=== PATIENT | female | born 1985 | race Asian ===

== ENCOUNTER 2022-06-02 07:21 | Outpatient (REF) | payer BC, SELFPAY ==
[2022-06-02 07:29] LABS: MANUAL DIFF FLAG NO
[2022-06-02 08:02] LABS: Appearance Urine Clear; Color Urine Yellow; Glucose Urine UA Negative (Negative); Leukocyte Esterase Urine Negative (Negative); Nitrite Urine Negative (Negative); Specific Gravity - Urine <= 1.005 (1.005-1.025); Urine Blood Negative (Negative); Urine Ketones Negative (Negative); Urine Protein Negative (Neg-Trace)
[2022-06-02 08:27] LABS: Basophils Percent Auto 0.8 % (0-2); Eosinophils Absolute Auto 0.1 X10*3/uL (0.0-0.4); Eosinophils Percent Auto 1.7 % (0-4); Hematocrit 40.9 % (37.0-47.0); Hemoglobin 13.7 g/dl (12.0-16.0); Imm Gran Abs Auto 0.01 X10*3/uL (0.00-0.03); Imm Gran Pct Auto 0.3 % (0.0-0.4); Lymphocytes Absolute Auto 1.4 X10*3/uL (1.2-4.9); Lymphocytes Percent Auto 37.8 % (20-40); Mean Corpuscular HGB Conc 33.5 g/dl (31.0-35.0); Mean Corpuscular Hemoglobin 31.4 pg (27.0-33.0); Mean Corpuscular Volume 93.8 fL (80.0-98.0); Mean Platelet Volume 9.5 fL (9.4-12.3); Monocytes Absolute Auto 0.4 X10*3/uL (0.1-1.2); Neutrophils Absolute Auto 1.8 x10*3/uL (2.0-8.3); Neutrophils Percent Auto 48.4 % (45-73); Platelet Count 262 X10*3/uL (160-400); Red Blood Count 4.36 X10*6/uL (4.20-5.50); Red Cell Distribution Width 11.9 % (11.0-16.0); White Blood Count 3.6 X10*3/uL (4.8-10.8)
[2022-06-02 08:30] LABS: Creatinine Urine 34.66 mg/dL; Microalbumin Urine < 5.0 mg/L
[2022-06-02 08:51] LABS: Alanine Aminotransferase 16 U/L (0-31); Albumin Level 4.3 g/dL (3.5-5.0); Alkaline Phosphatase 60 U/L (39-117); Anion Gap 12 (12-20); Aspartate Amino Transferase 20 U/L (5-31); Bilirubin Total 0.7 mg/dL (0.0-1.0); Blood Urea Nitrogen 13 mg/dL (9-16); Calcium 9.6 mg/dL (8.4-10.2); Carbon Dioxide 24 mmol/L (22-29); Chloride 106 mmol/L (96-108); Cholesterol 216 mg/dL; Estimated Glomerular Filt Rate > 60; Glucose Fasting 83 mg/dL (60-99); HDL Cholesterol 93 mg/dL; LDL Cholesterol Calculated 112 mg/dl; Potassium 4.4 mmol/L (3.3-5.1); Sodium 138 mmol/L (135-145); Total Protein 6.6 g/dL (6.5-8.0); Triglycerides 55 mg/dL
[2022-06-02 09:08] LABS: TSH reflex Free T4 2.32 uIU/mL (0.32-4.0)
== END 2022-06-02 07:22 | disposition home or self-care (01) ==
LOC: HO.LAB 07:21
PROVIDERS: PCP Family Medicine; Visit Provider Family Medicine
DX: Z00.00 Encounter for general adult medical examination without abnormal findings (principal); I10 Essential (primary) hypertension
CPT/HCPCS: 36415; 80053; 80061; 81003; 82043; 84443; 85025

== ENCOUNTER 2022-08-12 08:56 | Outpatient (REF) | payer BC, SELFPAY ==
[2022-08-15 06:04] LABS: HPV mRNA E6/E7 rflx Not Detected (Not Detected)
== END 2022-08-12 08:57 | disposition home or self-care (01) ==
LOC: HO.LNP 08:56
PROVIDERS: PCP Family Medicine; Visit Provider Advanced Practice Midwife
DX: Z01.419 Encounter for gynecological examination (general) (routine) without abnormal findings (principal); Z11.51 Encounter for screening for human papillomavirus (HPV)
CPT/HCPCS: 87624; 88142

== ENCOUNTER 2023-01-15 15:13 | Outpatient (AMB) | payer BC, SELFPAY ==
--- NOTE | 2023-01-15 15:22 | MHC.PC.OV ---
Vital Signs 01/15/23 15:23 Height 5 ft 1 in Weight 102 lb 2 oz BMI 19.3 BP 112/74 Blood Pressure Location Rt brachial Position Sitting Respiration 12 Pulse 54 Pulse Source Pulse Oximeter Temp 98.3 F Temp Source Temporal Artery Scan Pulse Oximetry (%) 99 Oxygen Delivery Method Room Air Intake Visit Reasons: Ichy/Red/Rough Spot on Neck Intake Note: Patient states that the spot has been there for about 6 months. Patient states that she thought it would go away but it has gotten bigger since then. Patient states that she has scratched the spot raw and has tried to use creams to get rid of the itch but it hasnt worked. Patient states that she had the same itch behind her knee as well but that itch went away on its own. Win[employer] C[employer] Hand Required: No Accompanied by: Self / Same As Patient Allergies No Known Allergies Allergy (Verified 01/15/23 15:49) Medication List - Last Reconciled 01/15/23 by Kade Espinoza CNP No Known Home Meds Tobacco use date assessed: 06/01/22 Dental Screening Dental Screen Date: 01/15/23 Did you have a dental visit in the last 12 months?: Yes Did you have a dental problem in the last 6 months where you did not have access to dental care?: No Was dental information given to patient?: Patient has dentist HPI HPI Comments History of Present Illness Details 37-year-old female presents with complaints of red, rough spot on the right side of her neck. She reports intermittent itching. She notes that the spot has been present for about 6 months and has progressively gotten bigger. She has tried otc anti-itch cream without improvement. 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 Daron Moran, Michelle Tapia, Gilberto Benson and colleagues, with an educational leonel from [employer]. Review of Systems Const Details: Const Denies chills, Denies fatigue, Denies fever(s), Denies headache(s) and Denies weakness ENT Denies dizziness and Denies headache(s) Card Denies chest pain, Denies lightheadedness, Denies dyspnea and Denies other (Palpitations) Resp Denies cough, Denies dyspnea, Denies wheezing and Denies other ( shortness of breath) GI Denies abdominal pain, Denies melena, Denies hematochezia, Denies change in bowel habits, Denies dyspepsia and Denies nausea Denies hematuria and Denies dysuria Musc Denies abnormal gait, Denies myalgias, Denies arthralgias, Denies numbness and Denies tingling Skin/Breast Reports spot to neck, Denies unusual bruising and Denies wounds Neuro Denies abnormal gait, Denies dizziness, Denies headache(s), Denies memory loss, Denies numbness, Denies Sensory deficit (Neuro), Denies tingling and Denies weakness Psych Denies anxiety, Denies depression, Denies memory loss Endo Denies cold intolerance, Denies fatigue, Denies heat intolerance, Denies polydipsia and Denies polyuria Aller/Immun Denies wheezing Physical exam (Primary Care) Vital Signs: Last Vital Signs Temp 98.3 F 01/15/23 15:23 Pulse 54 01/15/23 15:23 Resp 12 01/15/23 15:23 BP 112/74 01/15/23 15:23 Pulse Ox 99 01/15/23 15:23 Oxygen Delivery Method Room Air 01/15/23 15:23 BMI result Body Mass Index 19.3 Tobacco/Smoking Status: Tobacco use Status Tobacco use date assessed 06/01/22 01/15/23 15:33 Patient Tobacco Use Status Never used Tobacco 01/15/23 15:33 e-Cigarette/Vaping Use Never Used 01/15/23 15:33 Thrive Assessment: Date of Thrive Assessment Date Thrive assessed 06/01/22 01/15/23 15:33 Const Other: General: no acute distress and well developed Nutritional Appearance: well nourished Orientation/consciousness: patient oriented x3 [facility] Head: Yes normocephalic and Yes atraumatic Eyes General: appearance normal, both eyes and all related structures Pupils: Equal, round and reactive pupils present EOM: EOMs intact bilaterally Resp Effort & Inspection: normal respiratory effort Auscultation: clear to auscultation bilaterally Cardio Rate: regular rate Rhythm: regular rhythm Heart sounds: S1 normal heart sound present, S2 normal heart sound present, no gallops, no murmurs and no rubs GI Palpation (GI): No Abdominal aortic bruit present, Soft to palpation, nontender, No hepatosplenomegaly present and No Rebound tenderness present Auscultation: normal bowel sounds General: Yes no CVA tenderness Back/Spine/Pelvis Back: no CVA tenderness Cervical Spine: cervical ROM normal and No Cervical spine tenderness Thoracic/Lumbar Spine: thoraco-lumbar ROM normal, No pain with thoraco-lumbar ROM, No thoracic spinal tenderness and No lumbar spinal tenderness Extrem General: Yes normal to inspection, No edema and No calf tenderness Skin General: warm and dry. Normal skin color. Normal skin turgor Lesions: no lesions Rashes: Red, raised patch to the right side of neck, consistent with tinea corporis Trauma: no lacerations or abrasions Wounds: no wounds Nails: normal Neuro General: patient oriented x3, gait normal and no focal neuro deficit Cranial nerves: Yes Equal, round and reactive pupils present Cognition (Neuro): normal cognition Gait exam (Neuro): Normal gait present Sensory Exam: No Sensory deficit (Neuro) Psych Appearance: grossly normal Affect: normal affect Attitude: cooperative Thought process: Normal thought process present Assessment and Plan Assessment & Plan (1) Tinea corporis: Code(s): B35.4 - Tinea corporis Plan: Red, raised patch to the right side of neck, consistent with tinea corporis Ketoconazole cream ordered. Use as prescribed Follow-up with worsening or new signs and symptoms Verbalized understanding and agreed with treatment plan. Medications: New ketoconazole 2% 1 appl topical BID 1 month 30 grams 0RF Coding Level of Care Code Est Pt Level 3 (66406) Diagnoses Tinea corporis B35.4
[2023-01-15 15:23] VITALS: BP 112/74; PULSE 54; RESP 12; TEMP 36.8; O2SAT 99; BMI 19.3
== END 2023-01-15 16:03 | disposition home or self-care (01) ==
PROVIDERS: PCP Family Medicine; Visit Provider Nurse Practitioner Family
DX: B35.4 Tinea corporis (principal)
CPT/HCPCS: 99213

== ENCOUNTER 2023-03-31 07:18 | Outpatient (REF) | payer BC, SELFPAY ==
[2023-03-31 08:09] LABS: Estimated Average Glucose 100 mg/dL; Hemoglobin A1c % 5.1 % (<6.0)
[2023-03-31 08:40] LABS: Cholesterol 240 mg/dL (<200); HDL Cholesterol 91 mg/dL (>40); LDL Cholesterol Calculated 141 mg/dL (<100); Triglycerides 42 mg/dL (<150)
[2023-03-31 08:48] LABS: Appearance Urine Clear; Color Urine Yellow; Glucose Urine UA Negative (Negative); Leukocyte Esterase Urine Negative (Negative); Nitrite Urine Negative (Negative); Specific Gravity - Urine 1.015 (1.005-1.025); Urine Blood Negative (Negative); Urine Ketones Negative (Negative); Urine Protein Negative (Neg-Trace)
[2023-03-31 08:54] LABS: TSH reflex Free T4 1.78 uIU/mL (0.32-4.0)
== END 2023-03-31 07:19 | disposition home or self-care (01) ==
LOC: HO.LAB 07:18
PROVIDERS: PCP Family Medicine; Visit Provider Family Medicine
DX: Z00.00 Encounter for general adult medical examination without abnormal findings (principal); R63.1 Polydipsia
CPT/HCPCS: 36415; 80061; 81003; 83036; 84443

== ENCOUNTER 2023-07-13 13:56 | Outpatient (AMB) | payer BC, SELFPAY ==
--- NOTE | 2023-07-13 14:01 | MHC.PC.OV ---
Vital Signs 07/13/23 14:03 Height 5 ft 1 in Weight 104 lb 2 oz BMI 19.7 BP 120/62 Blood Pressure Location Lt brachial Position Sitting Pulse 68 Pulse Source Pulse Oximeter Pulse Oximetry (%) 99 Oxygen Delivery Method Room Air Intake Visit Reasons: Strained Muscle/Chest pain Intake Note: Patient is here with chest pain since yesterday, the muscle tightens fell on the counter yeaterday, then had trouble breathing. Allergies No Known Allergies Allergy (Verified 07/13/23 14:05) Tobacco use date assessed: 07/13/23 HPI Strained Muscle/Chest pain HPI Details 38 y/o female presents today with complaints of chest pain. She reports chest pain with difficulty breathing at the center of her chest that lasted for about 30 seconds. They report she was doing dishes before the episode of chest pain. She denies any pain while on the treadmill. No?dizziness,?nausea?or?diaphoresis They report she has had chest pain before. Heart rate in the 50s today and pt reports she regularly exercises. They report episodes of fatigue but no shortness of breath. 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 Daron Moran, Michelle Tapia, Gilberto Benson and colleagues, with an educational leonel from [employer]. Review of Systems Const Denies chills, Denies fatigue, Denies fever(s), Denies headache(s) and Denies weakness ENT Denies dizziness and Denies headache(s) Card Reports chest pain, Denies lightheadedness, Denies dyspnea and Denies other (Palpitations) Resp Denies cough, Denies dyspnea, Denies wheezing and Denies other ( shortness of breath) Musc Denies numbness and Denies tingling Neuro Denies dizziness, Denies headache(s), Denies numbness, Denies tingling, Denies paresthesias and Denies weakness Psych Denies anxiety and Denies depression Endo Denies fatigue Aller/Immun Denies wheezing Physical exam (Primary Care) Vital Signs: Last Vital Signs Pulse 68 07/13/23 14:03 BP 120/62 07/13/23 14:03 Pulse Ox 99 07/13/23 14:03 Oxygen Delivery Method Room Air 07/13/23 14:03 BMI result Body Mass Index 19.7 Tobacco/Smoking Status: Tobacco use Status Tobacco use date assessed 07/13/23 07/13/23 14:09 Patient Tobacco Use Status Never used Tobacco 07/13/23 14:01 e-Cigarette/Vaping Use Never Used 07/13/23 14:01 Thrive Assessment: Date of Thrive Assessment Date Thrive assessed 06/01/22 07/13/23 14:01 Const General: no acute distress and well developed Nutritional Appearance: well nourished Orientation/consciousness: patient oriented x3 [facility] Head: Yes normocephalic and Yes atraumatic Eyes General: appearance normal, both eyes and all related structures Pupils: Equal, round and reactive pupils present EOM: EOMs intact bilaterally Resp Effort & Inspection: normal respiratory effort Auscultation: clear to auscultation bilaterally Cardio Rate: regular rate Rhythm: regular rhythm Heart sounds: S1 normal heart sound present, S2 normal heart sound present, no gallops, no murmurs and no rubs Neuro General: patient oriented x3 and gait normal Cranial nerves: Yes Equal, round and reactive pupils present Psych Affect: normal affect Assessment and Plan Assessment & Plan (1) Chest pain: Code(s): R07.9 - Chest pain, unspecified Plan: EKG: ?Sinus?bradycardia,?normal?axis,?normal?intervals,?atrial?enlargement,?no?ventricular?hypertrophy,?no?ST-T-wave?changes Unclear?cause?for?her?chest?pain.??Possible?myocarditis?or?early?pericarditis?though?no?obvious?changes?on?her?EKG?except?biatrial?enlargement. Will?check?echocardiogram?and?chest?x-ray Checking?labs?including?D-dimer?and?troponin.??Also?checking?inflammatory?markers. Should?go?to?the?ED?if?pain?is?lasting?longer?than?a?couple?of?minutes Other?causes?of?substernal?chest?pain?include?esophageal?spasm.??She?will?try?some?omeprazole?in?case?this?is?secondary?to?acid?reflux. (2) Bradycardia: Code(s): R00.1 - Bradycardia, unspecified Plan: Patient?exercises?frequently?and?this?is?likely?physiologic Orders: Orders Lipid Panel Today Z00.00 - Encounter for general adult medical examination without abnormal findings UA and rflx microscopic Today Z00.00 - Encounter for general adult medical examination without abnormal findings XR chest 2V Today R07.89 - Other chest pain AMB EKG-In Office Today R07.9 - Chest pain, unspecified Comprehensive Met. Panel Today R07.9 - Chest pain, unspecified Erythrocyte Sedimentation Rate Today R07.9 - Chest pain, unspecified CRP High Sensitivity Today R07.9 - Chest pain, unspecified Troponin-I High Sensitivity Today R07.9 - Chest pain, unspecified D Dimer High Sensitivity Today R07.9 - Chest pain, unspecified Comprehensive [place]. Panel Fast Today Z00.00 - Encounter for general adult medical examination without abnormal findings Microalbumin, Random (w Creat) Today I10 - Essential (primary) hypertension TSH reflex Free T4 Today Z00.00 - Encounter for general adult medical examination without abnormal findings Complete Blood Count Auto Diff Today R07.9 - Chest pain, unspecified, Z00.00 - Encounter for general adult medical examination without abnormal findings CA echo transthoracic complete Today R07.9 - Chest pain, unspecified Medications: New omeprazole 40 mg PO DAILY 30 days 30 caps 0RF Coding Level of Care Code Est Pt Level 3 (21423) Diagnoses Chest pain R07.9 Bradycardia R00.1
[2023-07-13 14:03] VITALS: BP 120/62; PULSE 68; O2SAT 99; BMI 19.7
== END 2023-07-13 15:28 | disposition home or self-care (01) ==
PROVIDERS: PCP Family Medicine; Visit Provider Family Medicine
DX: R07.9 Chest pain, unspecified (principal); R00.1 Bradycardia, unspecified
CPT/HCPCS: 99213

== ENCOUNTER → 2023-08-04 14:57 | Outpatient (REF) | payer BC, SELFPAY ==
--- NOTE | 2023-08-04 15:00 | CA_ITS ---
Transthoracic Echocardiogram Patient (Last, First, Middle): Lillian Pritchett, Gender: Female Date of : 1985 Age: 38 Procedure Date: 08/04/2023 Procedure Type: Transthoracic Echocardiogram Location: OP Height: 152.4 cm Weight: 46.72 kg BSA: 1.41 m2 Heart Rate: bpm BP: 94 / 64 mmHg Phys Ther: MESSI Referring MD: Mendel Briseno MD Insulation Foreman: Juan Yi MD Symptoms: R07.9 - Chest pain, unspecified Study Quality: Adequate ECG Rhythm: Sinus Conclusions: - Normal study Findings Left Ventricle Normal left ventricular size, thickness, and systolic function. The visually estimated ejection fraction is between 65-70%. Diastolic function is normal for age. Peak GLS is -22.6%, within normal limits. Right Ventricle Normal right ventricular cavity size and systolic function. Atria Both atria are normal in size. There is no evidence of interatrial shunt. Aortic Valve Normal aortic valve structure and function. There is no aortic valve stenosis. There is no aortic valve regurgitation. Mitral Valve Normal mitral valve structure and function. There is trace mitral valve regurgitation. There is no mitral valve stenosis. Pulmonic Valve The pulmonic valve is likely normal. Tricuspid Valve Normal tricuspid valve structure. There is trace tricuspid valve regurgitation. The right ventricular systolic pressure is normal. The right ventricular systolic pressure is 14 mmHg. Normal right atrial pressure. There is no evidence of pulmonary hypertension. Great Vessels All visible segments of the aorta are normal in size. The visualized portions of the pulmonary artery and branches are normal. Venous The inferior vena cava is normal in size and collapses greater than 50% with inspiration. Pericardium/Pleural There is no evidence of pericardial effusion. Prior Study Comparison No prior study available for comparison. Measurements 2D Linear Measurements IVSd: 0.77 0.6-0.9/0.6-1.0 cm LVIDd: 3.97 3.9-5.3/4.2-5.9 cm LVIDd Index: 2.82 2.4-3.2/2.2-3.1 cm/m2 LVIDs: 2.64 2.0-3.6 cm LVPWd: 0.74 0.7-1.1 cm LA Diam: 2.70 2.7-3.8/3.0-4.0 cm LAIDs Index: 1.91 1.5-2.3 cm/m2 LV Mass: 106.26 67-162/88-224 g LV Mass Index: 75.36 43-95/49-115 g/m2 LVOT Diam: 1.80 3.0+(-)1.3 cm 2D Systolic Function EF 4C: 66.70 >55% EF 2C: 67.30 >55% EF BiP: 66.90 >55% Mitral Valve MV Pk E: 0.88 MV PK A: 0.32 MV Decel Time: 212.00 E/A: 2.80 E'Lateral: 12.20 E'Medial: 11.50 E/E' Med: 7.70 E/E' Lat: 7.20 PHT: 62.00 MVA PHT: 3.55 Decel Lanier: 4.16 Aortic Valve AoV Pk Serge: 1.26 AoV Mn Serge: 0.90 AoV VTI: 0.32 AoV Pk Grad: 6.00 Aov Mn Grad: 4.00 ZION Cont.VTI: 1.72 LVOT LVOT Pk Serge: 0.97 LVOT Mn Serge: 0.64 LVOT VTI: 0.22 LVOT Pk Grad: 4.00 LVOT Mn Grad: 2.00 LVOT Diam: 1.80 LVOT Area: 2.54 Diastolic Function MV Pk E: 0.88 MV Pk A: 0.32 E/A: 2.80 E'Medial: 11.50 E/E' Med: 7.70 E' Laterial: 12.20 E/E' Lat: 7.20 Right Ventricle TAPSE (mm): 24.30 TVS' Serge: 12.30 Tricuspid Valve TR Pk Serge: 1.64 TR Pk Grad: 11.00 RA Press: 3.00 RVSP: 14.00 Great Vessels Aorta Sinus of Valsalva: 2.75 2.0-3.[address] [place]: 2.11 1.7-3.4 cm Ao Asc: 2.50 2.1-3.4 cm Updated in Other Vendor System with Status of Final Juan Yi MD electronically signed on 08/05/2023 5:15:01 PM with status of Final
== END ==
LOC: HO.CARD 14:57
PROVIDERS: PCP Family Medicine; Visit Provider Family Medicine
DX: R07.9 Chest pain, unspecified (principal)
CPT/HCPCS: 93306; 93356

== ENCOUNTER → 2023-08-04 15:00 | Outpatient (BNV) | payer BC, SELFPAY | PROVIDERS: PCP Family Medicine; Visit Provider Internal Medicine Cardiovascular Disease | DX: R07.9 Chest pain, unspecified (principal) | CPT/HCPCS: 93306; 93356 ==

== ENCOUNTER 2023-08-05 08:15 | Outpatient (REF) | payer BC, SELFPAY ==
--- NOTE | ~2023-08-05 | XR_ITS ---
EXAMINATION: XR CHEST CLINICAL INFORMATION: Chest pain. COMPARISON: None available. TECHNIQUE: 2 views of the chest were obtained. FINDINGS: The lungs are well inflated. Heart size is normal. No pleural effusion. No focal consolidation to suggest pneumonia. XR/XR chest 2V IMPRESSION: No evidence of pneumonia. Well-inflated lungs.
[2023-08-05 08:49] LABS: MANUAL DIFF FLAG NO
[2023-08-05 09:28] LABS: Eosinophils Absolute Auto 0.1 X10*3/uL (0.0-0.4); Eosinophils Percent Auto 1.6 % (0-4); Hematocrit 38.9 % (37.0-47.0); Hemoglobin 13.2 g/dl (12.0-16.0); Imm Gran Abs Auto 0.01 X10*3/uL (0.00-0.03); Imm Gran Pct Auto 0.3 % (0.0-0.4); Lymphocytes Absolute Auto 0.8 X10*3/uL (1.2-4.9); Lymphocytes Percent Auto 24.3 % (20-40); Mean Corpuscular HGB Conc 33.9 g/dl (31.0-35.0); Mean Corpuscular Volume 94.4 fL (80.0-98.0); Mean Platelet Volume 9.6 fL (9.4-12.3); Monocytes Absolute Auto 0.3 X10*3/uL (0.1-1.2); Monocytes Percent Auto 8.7 % (2-11); Neutrophils Percent Auto 64.1 % (45-73); Platelet Count 259 X10*3/uL (160-400); Red Blood Count 4.12 X10*6/uL (4.20-5.50); Red Cell Distribution Width 11.8 % (11.0-16.0); White Blood Count 3.1 X10*3/uL (4.8-10.8)
[2023-08-05 09:36] LABS: D Dimer High Sensitivity < 150 NG/ML
[2023-08-05 10:03] LABS: Appearance Urine Clear; Color Urine Yellow; Glucose Urine UA Negative (Negative); Leukocyte Esterase Urine Negative (Negative); Nitrite Urine Negative (Negative); PH 7.5 (5.0-9.0); Specific Gravity - Urine <= 1.005 (1.005-1.025); Urine Blood Negative (Negative); Urine Ketones Negative (Negative); Urine Protein Negative (Neg-Trace)
[2023-08-05 10:05] LABS: Troponin-I High Sensitivity < 2.7 ng/L (<3.5-17.0)
[2023-08-05 10:06] LABS: Erythrocyte Sedimentation Rate 3 MM/HR (0-20)
[2023-08-05 10:07] LABS: Alanine Aminotransferase 18 U/L (0-31); Albumin Level 4.2 g/dL (3.5-5.0); Alkaline Phosphatase 60 U/L (39-117); Anion Gap 12 (12-20); Aspartate Amino Transferase 25 U/L (5-31); Bilirubin Total 0.7 mg/dL (0.0-1.0); Blood Urea Nitrogen 7 mg/dL (9-16); Calcium 9.6 mg/dL (8.4-10.2); Carbon Dioxide 25 mmol/L (22-29); Chloride 108 mmol/L (96-108); Cholesterol 203 mg/dL (<200); Estimated Glomerular Filt Rate > 60; Glucose Fasting 85 mg/dL (60-99); Glucose Random 85 mg/dL (60-115); HDL Cholesterol 89 mg/dL (>40); LDL Cholesterol Calculated 106 mg/dL (<100); Sodium 141 mmol/L (135-145); Total Protein 6.7 g/dL (6.5-8.0); Triglycerides 41 mg/dL (<150)
[2023-08-05 10:50] LABS: Creatinine Urine 14.97 mg/dL; Microalbumin Urine < 5.0 mg/L
[2023-08-06 17:08] LABS: CRP High Sensitivity <0.3 mg/L
== END 2023-08-05 08:16 | disposition home or self-care (01) ==
LOC: HO.LAB 08:15
PROVIDERS: PCP Family Medicine; Visit Provider Family Medicine
DX: Z00.00 Encounter for general adult medical examination without abnormal findings (principal); R07.89 Other chest pain; I10 Essential (primary) hypertension
CPT/HCPCS: 36415; 71046; 80053; 80061; 81003; 82043; 82570; 84443; 84484; 85025; 85379; 85652; 86141

== ENCOUNTER 2023-08-19 09:16 | Outpatient (REF) | payer BC, SELFPAY ==
[2023-08-24 21:14] LABS: HPV mRNA E6/E7 rflx Not Detected (Not Detected)
== END 2023-08-19 09:17 | disposition home or self-care (01) ==
LOC: HO.LNP 09:16
PROVIDERS: PCP Family Medicine; Visit Provider Advanced Practice Midwife
DX: Z01.419 Encounter for gynecological examination (general) (routine) without abnormal findings (principal); Z11.51 Encounter for screening for human papillomavirus (HPV); Z85.41 Personal history of malignant neoplasm of cervix uteri
CPT/HCPCS: 87624; 88142

== ENCOUNTER 2023-08-19 09:16 | Outpatient (AMB) | payer BC, SELFPAY ==
--- NOTE | 2023-08-19 09:18 | MHC.OFFVIS ---
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 Doing well with no concerns. She tries to eat healthy and stays active with exercise. Admits to lifetime history of severe constipation also a familiar pattern. Currently is sexually active. She denies vaginal itching and irritation. Admits to dryness. Denies family history of breast or ovarian cancer. FH colon cancer. Hysterectomy 2019 due to cervical cancer, no Pap follow up at [facility] during the pandemic. Pap 2022 was negative. 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 Gender identity: Female Cognitive needs: No Hearing needs: No Vision needs: No Female Reproductive History Menstrual Menopause type: surgical Total pregnancies: 0 Date of last pap smear: 08/12/22 (neg pap and hpv) History of abnormal pap smear: Yes (hx cervical cancer) Review of Systems Const All systems reviewed & are unremarkable except as noted in HPI and below Reports as per HPI Eyes Reports no additional complaints ENT Reports no additional complaints Card Reports no additional complaints Resp Reports no additional complaints GI Reports as per HPI and Reports no additional complaints Reports as per HPI Musc Reports no additional complaints Skin/Breast Reports as per HPI Neuro Reports no additional complaints Psych Reports no additional complaints Endo Reports no additional complaints Roberto/Lymph Reports no additional complaints Aller/Immun Reports no additional complaints Physical Exam Vital Signs: Last Vital Signs BP 112/70 08/19/23 09:19 BMI result Body Mass Index 19.3 Const General: cooperative, healthy appearing, no acute distress, well developed and alert Orientation/consciousness: patient oriented x3 HEENT Head: Yes normal to inspection Eyes General: appearance normal, both eyes and all related structures Neck Neck: Yes normal visual inspection Thyroid: Thyroid normal Chest Chest palpation & inspection: normal inspection of the chest and other (no puckering, dimpling, peau de orange, retraction, discharge, masses) Breast/axilla inspection: normal inspection of the breasts Breast/axilla palpation: normal palpation of the breasts Resp Effort & Inspection: normal respiratory effort GI Inspection: Yes normal to inspection Palpation (GI): Soft to palpation Rectal Exam - Female: deferred General: Yes bladder normal to palpation External Female Exam: normal external appearance and normal appearance of the urethra Speculum Exam - Vagina: normal appearance of the vagina, normal palpation and normal vaginal discharge Speculum Exam - Cervix: Cervix absent (Vaginal cuff present no lesions or nodules) Bimanual exam- vagina & uterus: normal bimanual exam, normal palpation, uterine size normal, bladder normal to palpation and uterus absent Bimanual Exam- Adnexa, other: no masses and Other (Fullness noted with loops of bowel towards the mid to left pelvis ) Skin General skin exam: no rashes or lesions noted Rashes: no rashes Neuro General: patient oriented x3 Cognition (Neuro): normal cognition Extrem General: Yes normal to inspection Psych Attitude: cooperative Thought process: Normal thought process present Assessment & Plan Assessment & Plan (1) Encounter for well woman exam with routine gynecological exam: Code(s): Z01.419 - Encounter for gynecological examination (general) (routine) without abnormal findings (2) Pelvic fullness: Code(s): R19.00 - Intra-abdominal and pelvic swelling, mass and lump, unspecified site (3) History of constipation: Code(s): Z87.19 - Personal history of other diseases of the digestive system Plan Discussed: Current recommendations for pap smears per ASCCP guidelines. Breast awareness and periodic breast exams. Maintain a healthy lifestyle including a well balanced diet and routine exercise. Plan pelvic ultrasound, follow-up pending results. Discussed constipation helps self-help remedies. Mammogram after 39th birthday. Advised to report any pelvic pain unusual bloating or pressure or any other concerns. Discussed the use of Replens moisturizer, and additional lubricant as needed with intimacy. Patient verbalizes understanding and agrees to the plan of care. She was given opportunity to ask questions and all questions were answered to the best of my ability. RTO in one year for annual obstetrics gyn examination. This note is constructed using voice recognition software. While every effort has been made to ensure accuracy, knife cutter errors may have been included. Orders: Orders Pap Smear Today Z01.419 - Encounter for gynecological examination (general) (routine) without abnormal findings, Z85.41 - Personal history of malignant neoplasm of cervix uteri MM tomosynthesis screening BI Today Z12.31 - Encounter for screening mammogram for malignant neoplasm of breast US pelvic and transvaginal Today R19.00 - Intra-abdominal and pelvic swelling, mass and lump, unspecified site, Z87.19 - Personal history of other diseases of the digestive system Coding Level of Care Code Est Pt Prev Care 18-39y(39686) Diagnoses Encounter for well woman exam with routine gynecological exam Z01.419 Pelvic fullness R19.00 History of constipation Z87.19
[2023-08-19 09:19] VITALS: BP 112/70; BMI 19.3
== END 2023-08-19 09:58 | disposition home or self-care (01) ==
LOC: HO.HWS 09:16
PROVIDERS: PCP Family Medicine; Visit Provider Advanced Practice Midwife
DX: Z01.419 Encounter for gynecological examination (general) (routine) without abnormal findings (principal); R19.00 Intra-abdominal and pelvic swelling, mass and lump, unspecified site; Z87.19 Personal history of other diseases of the digestive system
CPT/HCPCS: 99395

== ENCOUNTER 2023-08-23 15:46 | Outpatient (AMB) | payer BC, SELFPAY ==
[2023-08-23 15:48] VITALS: BP 110/64; PULSE 63; O2SAT 99; BMI 19.9
--- NOTE | 2023-08-23 15:48 | A.OFFPC_ITS ---
Vital Signs 08/23/23 15:48 Height 5 ft 1 in Weight 105 lb 8 oz BMI 19.9 BP 110/64 Blood Pressure Location Lt brachial Position Sitting Pulse 63 Pulse Source Pulse Oximeter Pulse Oximetry (%) 99 Oxygen Delivery Method Room Air Intake Visit Reasons: follow up chest pain Intake Note: Patient is here for follow up on chest pain, and x-ray Allergies No Known Allergies Allergy (Verified 08/23/23 15:53) Tobacco use date assessed: 08/23/23 Dental Screening Dental Screen Date: 01/15/23 Did you have a dental visit in the last 12 months?: Yes Did you have a dental problem in the last 6 months where you did not have access to dental care?: No Was dental information given to patient?: Patient has dentist HPI follow up chest pain HPI Details 38 y/o female presents to f/u chest pain . EKG does not support ACS but checking labs, chest x-ray and echocardiogram. Possible myocarditis Also checking D-dimer though PE is unlikely Work-up was fine. 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 1. Little interest or pleasure in doing things: not at all 2. Feeling down, depressed, or hopeless: not at all 3. Trouble falling or staying asleep, or sleeping too much: not at all 4. Feeling tired or having little energy: not at all 5. Poor appetite or overeating: not at all 6. Feeling bad about yourself - or that you are a failure or have let yourself or your family down: not at all 7. Trouble concentrating on things, such as reading the newspaper or watching television: not at all 8. Moving or speaking so slowly that other people could have noticed. Or the opposite - being so fidgety or restless that you have been moving around a lot more than usual: not at all 9. Thoughts that you would be better off or of hurting yourself in some way: not at all Total score: 0 Depression Screening Interpretation: Negative Depression Screening Done: Yes Source: Developed by Drs. Daron Moran, Michelle Tapia, Gilberto Benson and colleagues, with an educational leonel from [employer]. Thrive Questionnaire Date Thrive assessed: 06/01/22 AUDIT C Alcohol Use Questionnaire (AUDIT-C) 1. How often do you have a drink containing alcohol?: Monthly or less 2. How many drinks containing alcohol do you have on a typical day when you are drinking?: 1 or 2 3. How often do you have six or more drinks on one occasion?: Never Total Score: 1 JANNETTE-7 AMB Questionnaire JANNETTE-7 Date JANNETTE - 7 assessed: 08/23/23 Feeling nervous, anxious, or on edge: 0 = Not at all Not being able to stop or control worryin = Not at all Worrying too much about different things: 0 = Not at all Trouble relaxin = Not at all Being so restless that it is hard to sit still: 0 = Not at all Becoming easily annoyed or irritable: 0 = Not at all Feeling afraid as if something awful might happen: 0 = Not at all Total JANNETTE-7 score (0-4 normal; 5-9 mild; 10-14 moderate; 15-21 severe): 0 Source: Developed by Drs. Daron Moran, Gilberto Oquendo and colleagues, with an educational leonel from [employer]. Review of Systems Const Denies chills, Denies fatigue, Denies fever(s), Denies headache(s) and Denies weakness ENT Denies dizziness and Denies headache(s) Card Denies chest pain, Denies lightheadedness, Denies dyspnea and Denies other (Palpitations) Resp Denies cough, Denies dyspnea, Denies wheezing and Denies other ( shortness of breath) Musc Denies numbness and Denies tingling Neuro Denies dizziness, Denies headache(s), Denies numbness, Denies tingling, Denies paresthesias and Denies weakness Psych Denies anxiety and Denies depression Endo Denies fatigue Aller/Immun Denies wheezing Physical exam (Primary Care) Vital Signs: Last Vital Signs Pulse 63 08/23/23 15:48 BP 110/64 08/23/23 15:48 Pulse Ox 99 08/23/23 15:48 Oxygen Delivery Method Room Air 08/23/23 15:48 BMI result Body Mass Index 19.9 Tobacco/Smoking Status: Tobacco use Status Tobacco use date assessed 08/23/23 08/23/23 15:54 Patient Tobacco Use Status Never used Tobacco 08/23/23 15:51 e-Cigarette/Vaping Use Never Used 08/23/23 15:51 PHQ-9: PHQ-9 Score PHQ-9: Total score 0 08/23/23 15:55 Depression Screening Interpretation: Negative Thrive Assessment: Date of Thrive Assessment Date Thrive assessed 06/01/22 08/23/23 15:51 Const General: no acute distress and well developed Nutritional Appearance: well nourished Orientation/consciousness: patient oriented x3 HENMT Head: Yes normocephalic and Yes atraumatic Eyes General: appearance normal, both eyes and all related structures Pupils: Equal, round and reactive pupils present EOM: EOMs intact bilaterally Resp Effort & Inspection: normal respiratory effort Auscultation: clear to auscultation bilaterally Cardio Rate: regular rate Rhythm: regular rhythm Heart sounds: S1 normal heart sound present, S2 normal heart sound present, no gallops, no murmurs and no rubs Neuro General: patient oriented x3 and gait normal Cranial nerves: Yes Equal, round and reactive pupils present Psych Affect: normal affect Assessment and Plan Assessment & Plan (1) Chest pain: Code(s): R07.9 - Chest pain, unspecified Plan: Echocardiogram,?chest?x-ray?and?lab?work?were?all?reassuring Likely?chest?wall?pain Advised?gentle?stretching,?heat?and?NSAIDs?or?Tylenol?as?needed (2) Screening for cervical cancer: Code(s): Z12.4 - Encounter for screening for malignant neoplasm of cervix Plan: Followed?by?pneumatic system conveyor operator?at?[facility] [place] Pap?smear results?pending Follow-up?with?pneumatic system conveyor operator?as?recommended (3) H/O total hysterectomy: Comment: 03/2020 cervical cancer Code(s): Z90.710 - Acquired absence of both cervix and uterus Plan: As?above,?follow-up?with?pneumatic system conveyor operator Plan Patient?will?start?mammograms?at?age?39 Coding Level of Care Code Est Pt Level 3 (26905) Diagnoses Chest pain R07.9 Screening for cervical cancer Z12.4 H/O total hysterectomy Z90.710
== END 2023-08-23 16:26 | disposition home or self-care (01) ==
PROVIDERS: PCP Family Medicine; Visit Provider Family Medicine
DX: R07.9 Chest pain, unspecified (principal); Z12.4 Encounter for screening for malignant neoplasm of cervix; Z90.710 Acquired absence of both cervix and uterus
CPT/HCPCS: 99213

== ENCOUNTER 2023-08-31 15:55 | Outpatient (REF) | payer BC, SELFPAY ==
--- NOTE | ~2023-08-31 | US_ITS ---
EXAMINATION: US PELVIS CLINICAL INFORMATION: Pelvic fullness COMPARISON: None available. TECHNIQUE: Transabdominal pelvic ultrasound. Patient declined transvaginal exam. FINDINGS: The uterus has been removed. The ovaries are not seen. No adnexal mass. No ascites. US/US pelvic complete IMPRESSION: Limited exam. Ovaries not seen. No ascites.
== END 2023-08-31 15:56 | disposition home or self-care (01) ==
LOC: HO.US 15:55
PROVIDERS: PCP Family Medicine; Visit Provider Advanced Practice Midwife
DX: Z87.19 Personal history of other diseases of the digestive system (principal); R19.00 Intra-abdominal and pelvic swelling, mass and lump, unspecified site
CPT/HCPCS: 76856

== ENCOUNTER 2023-09-22 11:45 | Outpatient (AMB) | payer BC, SELFPAY ==
--- NOTE | 2023-09-22 11:48 | MHC.OFFVIS ---
Vital Signs 09/22/23 11:50 Height 5 ft 1 in BP 100/62 Intake Visit Reasons: Ultra sound follow up Medical Authorization Specialist: Medical Authorization Specialist Present Allergies No Known Allergies Allergy (Verified 09/22/23 11:50) Is last menstrual period known: Yes HPI Comments Details: Patient is here to discuss ultrasound findings history of a hysterectomy due to cervical cancer. Last pelvic exam revealed some fullness in the adnexa, history of constipation. She has no complaints today and is feeling well. She reports starting Replens in his doing very well with the the products. 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 Sexual orientation: Straight/Heterosexual Gender identity: Female Cognitive needs: No Hearing needs: No Vision needs: No Review of Systems Const All systems reviewed & are unremarkable except as noted in HPI and below Endo Reports no additional complaints Physical Exam Const General: cooperative, healthy appearing and no acute distress Psych Appearance: well kempt Attitude: cooperative Thought process: Normal thought process present Results Reviewed Results Reviewed: [address] [address] Ultrasound Report Signed Patient: Lillian Pritchett MR#: [id number] : 1985 Acct:[id number] Age/Sex: 38 / F ADM Date: 08/31/23 Loc: HO.US Attending Dr: Yisel Perez CNM Ordering Physician: Yisel Perez CNM Date of Service: 08/31/23 Procedure(s): US pelvic complete Accession Number(s): [id number] cc: Mendel Briseno MD; Perez,Yisel CNM~ EXAMINATION: US PELVIS CLINICAL INFORMATION: Pelvic fullness COMPARISON: None available. TECHNIQUE: Transabdominal pelvic ultrasound. Patient declined transvaginal exam. FINDINGS: The uterus has been removed. The ovaries are not seen. No adnexal mass. No ascites. US/US pelvic complete IMPRESSION: Limited exam. Ovaries not seen. No ascites. Dictated By: Kristel Ochoa MD Signed By: <Electronically signed by Kristel Ochoa MD in OV> 09/06/23 1519 DD/ 1630 TD/TT: Senior Grant Writer: JAELYN Assessment & Plan Assessment & Plan (1) Encounter to discuss test results: Code(s): Z71.2 - Person consulting for explanation of examination or test findings Plan Discussed: Ultrasound findings. Continue use of Replens as directed. Follow up for annual exam in August of 2024. All of her questions and concerns were addressed to the best of my ability. She is agreeable to the plan of care. This note is constructed using voice recognition software. While every effort has been made to ensure accuracy, head porter baggage errors may have been included. Coding Level of Care Code Est Pt Level 3 (82597) Diagnoses Encounter to discuss test results Z71.2
[2023-09-22 11:50] VITALS: BP 100/62
== END 2023-09-22 11:46 | disposition home or self-care (01) ==
PROVIDERS: PCP Family Medicine; Visit Provider Advanced Practice Midwife
DX: Z71.2 Person consulting for explanation of examination or test findings (principal)
CPT/HCPCS: 99213

== ENCOUNTER → 2023-09-22 11:45 | Outpatient (BNVA) | payer BC, SELFPAY | PROVIDERS: PCP Family Medicine; Visit Provider Advanced Practice Midwife ==